=== PATIENT | female | born 1945 | race Caucasian/White ===

== ENCOUNTER 2017-05-24 10:48 | Emergency (ER) | payer OTHER ==
[2017-05-24 10:58] VITALS: BP 227/105; PULSE 81; RESP 19; TEMP 98; O2SAT 91
[2017-05-24] MEDS ORDERED: SIMV40TA PO (11:14)
[2017-05-24] MEDS ORDERED: ASPI-516 CHEW (11:14)
[2017-05-24] MEDS ORDERED: VESI5TAB2 PO (11:14)
[2017-05-24] MEDS ORDERED: CARV6.252 PO (11:14)
[2017-05-24] MEDS ORDERED: HUMALOG SQ (11:14)
[2017-05-24] MEDS ORDERED: LOSA100T PO (11:14)
[2017-05-24] MEDS ORDERED: OXYC-395 PO (11:14)
[2017-05-24] MEDS ORDERED: LANTUS2P SQ (11:14)
[2017-05-24] MEDS ORDERED: ZOLO50TA PO (11:14)
[2017-05-24 11:19] VITALS: BP 221/72
[2017-05-24] MEDS ORDERED: DOXY100C PO (11:32)
--- NOTE | 2017-05-24 11:35 | PD ---
HPI Chief Complaint: Skin Problem Time Seen by Provider: 11:18 Travel History International Travel<30 days: No Contact w/Intl Traveler<30days: No Traveled to known affect area: No History of Present Illness HPI 71 YO F with PMH of DMT2, HTN presents to the ED for evaluation of "at least 3 day" history of "red spots" on the bilateral lower extremities. The patient can identify no injury to the legs. She states that she was in [place] this weekend, but denies any water exposures. She denies fever, chills, nausea, vomiting. She denies history of MRSA. She states that she is very anxious about this rash because "I got bit by a brown recluse a few years ago when that took a long time to heal." She does not check her blood sugars daily. 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 PFSH Past Medical History Cardiovascular Problems: Yes Diabetes: Yes Social History Tobacco Use: No Allergies-Medications (Allergen,Severity, Reaction): Coded Allergies: Sulfa (Sulfonamide Antibiotics) (Verified Allergy, Severe, 05/24/17) latex (Verified Allergy, Severe, Rash, 05/24/17) Reported Meds & Prescriptions Reported Meds & Active Scripts Active Doxycycline Hyclate 100 Mg Cap 100 Mg PO BID Reported Oxycodone (Oxycodone HCl) 10 Mg Tab 10 Mg PO Q8HR Lantus Inj (Insulin Glargine) 100 Unit/Ml Inj 70 SQ HS Humalog Inj (Insulin Human Lispro) 1,000 Unit/10 Ml Vial 2-12 Units SQ ACHS Max dose at bedtime:( )units; sugars < 70,(0)units; sugars 150-199,(2)units; sugars 200-249,(4)units; sugars 250-299,(7)units; sugars 300-349,(10)units; sugars more than 349,(12)units. Aspirin 81 Mg Chew 81 Mg CHEW DAILY Vesicare (Solifenacin) 5 Mg Tab 5 Mg PO DAILY Losartan (Losartan Potassium) 100 Mg Tab 100 Mg PO DAILY Simvastatin 40 Mg Tab 40 Mg PO HS Zoloft (Sertraline HCl) 50 Mg Tab 50 Mg PO DAILY Carvedilol 6.25 Mg Tab 6.25 Mg PO BID Review of Systems Except as stated in HPI: all other systems reviewed are Neg Physical Exam Narrative GENERAL: Well-nourished, well-developed obese, anxious white female in no acute distress. SKIN: Focused skin assessment warm/dry. There is a subcentimeter wound on the anterior, left mid rosales. There are blanching, erythematous macules and papules scattered across the anterior aspect of both lower extremities, and extending to the mid thigh. No warmth, no popliteal LAD, no cellulitic streaking. HEAD: Normocephalic. EYES: No scleral icterus. No injection or drainage. NECK: Supple, trachea midline. No JVD or lymphadenopathy. CARDIOVASCULAR: Regular rate and rhythm without murmurs, gallops, or rubs. RESPIRATORY: Breath sounds equal bilaterally. No accessory muscle use. GASTROINTESTINAL: Abdomen soft, non-tender, nondistended. MUSCULOSKELETAL: No cyanosis, or edema. Ambulatory with a cane. BACK: Nontender without obvious deformity. No CVA tenderness. Data Data Last Documented VS Vital Signs Date Time Temp Pulse Resp B/P (MAP) Pulse Ox O2 Delivery O2 Flow Rate FiO2 05/24/17 11:19 221/72 (121) 05/24/17 10:58 98.0 81 19 91 Orders Orders Ed Discharge Order (05/24/17 11:35) [facility] Medical Decision Making Medical Screen Exam Complete: Yes Emergency Medical Condition: Yes Differential Diagnosis Folliculitis versus wound infection versus cellulitis versus erysipelas versus other Narrative Course 71 YO F with PMH of DMT2, HTN presents to the ED for evaluation of "at least 3 day" history of "red spots" on the bilateral lower extremities. The patient can identify no injury to the legs. Denies any water exposures, fever, chills, nausea, vomiting, history of MRSA. Patient's hypertensive on presentation. Physical exam reveals an obese, anxious white female in no acute distress. There is a scattered, blanching, erythematous maculopapular rash over the anterior aspects of both lower extremities that extends to the mid thigh. No popliteal LAD. No cellulitic streaking. She is prescribed doxycycline 100 mg twice a day 10 days. She is instructed to return to the ED in 3 days if symptoms have not improved. She indicated understanding of instructions and is agreeable to the care plan. The patient is stable and discharged home. Diagnosis Primary Impression: Cellulitis of both lower extremities Referrals: Primary Care Physician Patient Instructions: Cellulitis (ED), General Instructions Additional Instructions: Rest, hydrate. Keep your wounds clean and dry. Begin antibiotics today and take until EVERY pill is gone. Check your blood sugar at every meal and take medications as prescribed. Follow up with your primary care provider. return to the ED for WORSENING SYMPTOMS or any urgent/ emergent medical condition. Med/Other Pt SpecificInfo: Prescription(s) given Scripts Doxycycline Hyclate (Doxycycline Hyclate) 100 Mg Cap 100 MG PO BID for Infection, #20 CAP 0 Refills Prov: Mariano Stark MD 05/24/17 Disposition: 01 DISCHARGE HOME Condition: Stable Mayra Martinez May 24, 2017 11:35
== END 2017-05-24 12:04 | disposition home or self-care (01) ==
LOC: NEPK 10:48
DX: L03.115 Cellulitis of right lower limb (principal); L03.116 Cellulitis of left lower limb; E11.9 Type 2 diabetes mellitus without complications; I10 Essential (primary) hypertension; Z79.4 Long term (current) use of insulin
CPT/HCPCS: 99283

== ENCOUNTER 2017-05-26 09:16 | Emergency (ER) | payer MEDICARE, OTHER ==
[~2017-05-26] VITALS: Ht 165.1 cm; Wt 118.0 kg
[2017-05-26 09:16] VITALS: BP 226/100; PULSE 80; RESP 16; TEMP 98.8; O2SAT 97
[~2017-05-26 09:16] MED LIST: ASPI-516 CHEW; CARV6.252 PO; DOXY100C PO; HUMALOG SQ; LANTUS2P SQ; LOSA100T PO; OXYC-395 PO; SIMV40TA PO; VESI5TAB2 PO; ZOLO50TA PO
[2017-05-26] MEDS ORDERED: PERM5CRE11 TOPICAL (09:56)
[2017-05-26] MEDS ORDERED: AMLO5 PO (09:56)
--- NOTE | 2017-05-26 09:59 | PD ---
HPI Chief Complaint: Skin Problem Time Seen by Provider: 09:34 Travel History International Travel<30 days: No Contact w/Intl Traveler<30days: No Traveled to known affect area: No History of Present Illness HPI 71-year-old female presents to the emergency Department with complaint of worsening of her rash to bilateral lower extremities. Rash is itchy, burning. She woke up with a rash last in a hotel. She says she was in a hotel down in [place] which cruise ships come in and out of all the time. Denies fevers , vomiting. Denies anticoagulant therapy. Denies paresthesias, loss of sensation, decreased range of motion, decreased strength bilateral lower extremities. Denies airway edema, tongue edema, shortness of breath, wheezing. Was seen here on Wednesday and was given doxycycline for treatment for cellulitis and has been taking the antibiotic with worsening of symptoms. Has history of hypertension and takes Coreg and losartan. Has taken her medications this morning and has elevated blood pressure reading in the ER. Her blood pressure was elevated on Wednesday at her last visit. She denies chest pain, shortness of breath, vomiting, change in vision, headache, focal deficits or weakness, syncope. Reports headache the other day, but not now. No known relieving or aggravating factors. Has not tried any other treatments other than the antibiotics prescribed for symptom management. No one else with similar rash. Has history of diabetes mellitus type 2 and COPD. BGM readings have been between 190 and 210. 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 No primary care provider in this area. Allergies to sulfa and latex. History of COPD, hypertension, diabetes type 2, triple bypass. Has no other medical complaints. No other modifying factors or associated signs and symptoms. PFSH Past Medical History Cardiovascular Problems: Yes High Cholesterol: Yes COPD: Yes Coronary Artery Disease: Yes Diabetes: Yes Patient Takes Glucophage: No Hypertension: Yes ?: Not Past Surgical History Cholecystectomy: Yes Coronary Artery Bypass Graft: Yes Social History Alcohol Use: No Tobacco Use: No Substance Use: No Allergies-Medications (Allergen,Severity, Reaction): Coded Allergies: Sulfa (Sulfonamide Antibiotics) (Verified Allergy, Severe, 05/26/17) latex (Verified Allergy, Severe, Rash, 05/26/17) Reported Meds & Prescriptions Reported Meds & Active Scripts Active Elimite Topical (Permethrin) 5% Cream 1 Applic TOPICAL ONCE Norvasc (Amlodipine Besylate) 5 Mg Tab 5 Mg PO DAILY Doxycycline Hyclate 100 Mg Cap 100 Mg PO BID Reported Oxycodone (Oxycodone HCl) 10 Mg Tab 10 Mg PO Q8HR Lantus Inj (Insulin Glargine) 100 Unit/Ml Inj 70 SQ HS Humalog Inj (Insulin Human Lispro) 1,000 Unit/10 Ml Vial 2-12 Units SQ ACHS Max dose at bedtime:( )units; sugars < 70,(0)units; sugars 150-199,(2)units; sugars 200-249,(4)units; sugars 250-299,(7)units; sugars 300-349,(10)units; sugars more than 349,(12)units. Aspirin 81 Mg Chew 81 Mg CHEW DAILY Vesicare (Solifenacin) 5 Mg Tab 5 Mg PO DAILY Losartan (Losartan Potassium) 100 Mg Tab 100 Mg PO DAILY Simvastatin 40 Mg Tab 40 Mg PO HS Zoloft (Sertraline HCl) 50 Mg Tab 50 Mg PO DAILY Carvedilol 6.25 Mg Tab 6.25 Mg PO BID Review of Systems Except as stated in HPI: all other systems reviewed are Neg Physical Exam Narrative GENERAL: Well-nourished, well-developed elderly, female patient, in no acute distress; afebrile, nontoxic-appearing SKIN: Warm and dry. Generalized erythremic pimple-like rash to bilateral lower extremities and abdomen; some areas appear excoriated; rash in nonblanching. No areas with cellulitic process noted. HEAD: Atraumatic. Normocephalic. EYES: Pupils equal and round. No scleral icterus. No injection or drainage. ENT: Mucosa pink and moist. No erythema or exudates. No uvular edema. No uvular , palatal, or tonsillar deviation. Airway patent. Nasal turbinates appear normal without nasal blood, purulent drainage or septal hematoma. NECK: Trachea midline. CARDIOVASCULAR: Regular rate and rhythm. No murmur appreciated. RESPIRATORY: No accessory muscle use. Breath sounds clear and equal bilaterally. GASTROINTESTINAL: Obese. MUSCULOSKELETAL: No obvious deformities. No clubbing. No cyanosis. No edema. NEUROLOGICAL: Awake and alert. Oriented 3. No obvious cranial nerve deficits. Motor grossly within normal limits. Normal speech. PSYCHIATRIC: Appropriate mood and affect; insight and judgment normal. Data Data Last Documented VS Vital Signs Date Time Temp Pulse Resp B/P (MAP) Pulse Ox O2 Delivery O2 Flow Rate FiO2 05/26/17 10:02 75 19 178/74 (108) 94 Room Air 05/26/17 09:16 98.8 Orders Orders Amlodipine (Norvasc) (05/26/17 10:00) Complete Blood Count With Diff (05/26/17 10:10) Basic Metabolic Panel (Bmp) (05/26/17 10:10) Labs Laboratory Tests Test 05/26/17 10:21 White Blood Count 7.9 TH/MM3 Red Blood Count 4.32 MIL/MM3 Hemoglobin 12.7 GM/DL Hematocrit 37.4 % Mean Corpuscular Volume 86.7 FL Mean Corpuscular Hemoglobin 29.3 PG Mean Corpuscular Hemoglobin Concent 33.8 % Red Cell Distribution Width 12.9 % Platelet Count 252 TH/MM3 Mean Platelet Volume 8.1 FL Neutrophils (%) (Auto) 59.5 % Lymphocytes (%) (Auto) 25.4 % Monocytes (%) (Auto) 6.5 % Eosinophils (%) (Auto) 7.3 % Basophils (%) (Auto) 1.3 % Neutrophils # (Auto) 4.7 TH/MM3 Lymphocytes # (Auto) 2.0 TH/MM3 Monocytes # (Auto) 0.5 TH/MM3 Eosinophils # (Auto) 0.6 TH/MM3 Basophils # (Auto) 0.1 TH/MM3 CBC Comment DIFF FINAL Differential Comment Blood Urea Nitrogen 19 MG/DL Creatinine 1.05 MG/DL Random Glucose 317 MG/DL Calcium Level 8.7 MG/DL Sodium Level 137 MEQ/L Potassium Level 4.3 MEQ/L Chloride Level 105 MEQ/L Carbon Dioxide Level 25.2 MEQ/L Anion Gap 7 MEQ/L Estimat Glomerular Filtration Rate 52 ML/MIN [facility] Medical Decision Making Medical Screen Exam Complete: Yes Emergency Medical Condition: Yes Medical Record Reviewed: Yes Differential Diagnosis Scabies, contact dermatitis, petechial rash, nonspecific rash Narrative Course 71-year-old female with a nonspecific rash to bilateral lower extremities and abdomen. Patient is afebrile and nontoxic-appearing. Rash is nonblanching. I had Dr. Crump evaluated the patient and he recommended CBC and BMP. CBC and BMP ordered. Patient's blood pressure is elevated in the ER. She has taken her medication, Court and losartan this morning. Her blood pressure reading was elevated on her last visit on May 24. She is asymptomatic. I discussed elevated blood pressure with Dr. Crump and he agrees with my plan of care. Amlodipine ordered. Patient will be provided with a prescription for amlodipine and instructed to follow-up with primary care provider. 1044: EKG with normal sinus rhythm; without ST elevation or depression; reviewed by Dr. Crump. 1057: CBC unremarkable. BMP unremarkable. GFR 52. Serum glucose 317. Patient insulin dependent diabetic and manages her blood sugars. Dr. Crump agrees with discharge. Elimite cream and Norvasc prescribed for home. Instructed patient to follow up with primary care provider. Patient verbalizes understanding and agreement with treatment plan. Patient is medically cleared and stable for discharge. Discussed reasons to return to the emergency department. Patient agrees with treatment plan. The patients vital signs are stable and the patient is stable for outpatient follow-up and treatment. Patient discharged home, stable and in no acute distress. Diagnosis Primary Impression: Rash and nonspecific skin eruption Additional Impression: High blood pressure Qualified Codes: I10 - Essential (primary) hypertension Referrals: [facility] Developer Primary Care Physician Patient Instructions: Chronic Hypertension (ED), General Instructions, Hypertension (ED), Scabies (ED) Additional Instructions: Elimite cream as directed; repeat in one week as needed Soaking in cool water or apply cool, wet washcloths to irritated areas to minimize itching Apply anti-itch creams, such as calamine lotion, to relieve pain and itching as needed [id number] antihistamines as needed and as directed to relieve allergic symptoms caused by scabies Wash all pillows, linens, blankets, etc. in hot water and dry in hot dryer Bag and all unwashable linens, [place] stuffed animals, etc. 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
[2017-05-26] MEDS ORDERED: amLODIPine BESYLATE 5 MG TAB PO ONE (10:00)
[2017-05-26 10:02] VITALS: BP 178/74; PULSE 75; RESP 19; O2SAT 94
[2017-05-26 10:34] LABS: AUTOMATED NEUTROPHIL # 4.7 TH/MM3 (1.8-7.7); BASOPHIL # 0.1 TH/MM3 (0-0.2); BASOPHIL % 1.3 % (0.0-2.0); EOSINOPHIL # 0.6 TH/MM3 (0-0.4); EOSINOPHIL % 7.3 % (0.0-4.0); HEMATOCRIT 37.4 % (35.0-46.0); HEMOGLOBIN 12.7 GM/DL (11.6-15.3); LYMPH % 25.4 % (9.0-44.0); MEAN CELL VOLUME 86.7 FL (80.0-100.0); MEAN CORPUSCULAR HEMOGLOBIN 29.3 PG (27.0-34.0); MEAN CORPUSCULAR HGB CONC 33.8 % (32.0-36.0); MEAN PLATELET VOLUME 8.1 FL (7.0-11.0); MONO % 6.5 % (0.0-8.0); MONOCYTE # 0.5 TH/MM3 (0-0.9); NEUT % 59.5 % (16.0-70.0); PLATELET COUNT 252 TH/MM3 (150-450); RED BLOOD COUNT 4.32 MIL/MM3 (4.00-5.30); RED CELL DISTRIBUTION WIDTH 12.9 % (11.6-17.2); WHITE BLOOD COUNT 7.9 TH/MM3 (4.0-11.0)
[2017-05-26 11:03] LABS: BICARBONATE 25.2 MEQ/L (21.0-32.0); CALCIUM 8.7 MG/DL (8.5-10.1); CREATININE 1.05 MG/DL (0.50-1.00)
== END 2017-05-26 11:43 | disposition home or self-care (01) ==
LOC: NEPD 09:16
DX: R21 Rash and other nonspecific skin eruption (principal); I10 Essential (primary) hypertension; E78.00 Pure hypercholesterolemia, unspecified; J44.9 Chronic obstructive pulmonary disease, unspecified; E11.9 Type 2 diabetes mellitus without complications; I25.10 Atherosclerotic heart disease of native coronary artery without angina pectoris; Z95.1 Presence of aortocoronary bypass graft; Z79.4 Long term (current) use of insulin; Z79.82 Long term (current) use of aspirin
CPT/HCPCS: 80048; 85025; 99283